=== PATIENT | male | born 2000 | race Caucasian/White ===

== ENCOUNTER 2023-01-05 17:06 | Emergency (ER) | payer SELFPAY ==
[~2023-01-05] VITALS: Ht 177.8 cm; Wt 90.7 kg
[2023-01-05 17:13] VITALS: BP 123/67
--- NOTE | 2023-01-05 17:17 | NUR ---
MEDICAL CLEARANCE, NO COMPLAINTS.
--- NOTE | 2023-01-05 17:20 | NUR ---
Patient discharged with v/s stable. Written and verbal after care instructions given and explained. Patient verbalized understanding. Police with steady gait. All questions addressed prior to discharge. Advised to follow up with PMD.
[2023-01-05 17:22] VITALS: BP 123/67
== END 2023-01-05 17:20 ==
LOC: MED 17:06
DX: Z02.89 Encounter for other administrative examinations (principal); V49.88XA Car occupant (driver) (passenger) injured in other specified transport accidents, initial encounter; Y93.89 Activity, other specified; Y92.89 Other specified places as the place of occurrence of the external cause; Y99.8 Other external cause status
CPT/HCPCS: 99283